=== PATIENT | male | born 1960 | race Caucasian/White ===

== ENCOUNTER 2017-09-29 00:26 | Inpatient (IN) | payer OTHER ==
[2017-09-29] MEDS ORDERED: Ketorolac Tromethamine 30 MG/ML VIAL ONE (00:44)
[2017-09-29 02:09] LABS: #Eosinphils 0.1 thou/uL (0.0-0.7); #Lymphocytes 1.4 thou/uL (1.20-3.40); #Monocytes 0.7 thou/uL (0.11-0.59); #Neutrophils 6.5 thou/uL (1.40-6.50); %Basophils 0.3 % (0.0-1.0); %Lymphocytes 15.9 % (21.0-51.0); %Monocytes 8.3 % (0.0-10.0); %Neutrophils 74.5 % (42.0-75.0); Hemoglobin 14.5 g/dL (14.0-18.0); Mean Corpuscular HGB CONC 35.4 g/dL (32.0-36.0); Mean Corpuscular Hemoglobin 33.9 pg (27.0-31.0); Mean Corpuscular Volume 95.7 fl (80.0-94.0); Mean Platelet Volume 7.5 fL (7.4-10.4); Platelet Count 189 thou/uL (130-400); RBC Distribution Width 12.4 % (11.5-14.5); Red Blood Cell (RBC) Count 4.29 mill/uL (4.70-6.10); White Blood Cell (WBC) Count 8.7 thou/uL (4.8-10.8)
[2017-09-29 02:16] LABS: INR-International Normal Ratio 1.1; PTT 28.9 SEC (22.9-36.1); Prothrombin Time 14.3 SEC (12.0-14.7)
[2017-09-29] MEDS ORDERED: Dextrose 50% Abboject 50 ML SYRINGE SLOW IVP PRN (02:27)
[2017-09-29] MEDS ORDERED: Dextrose 5% in Water 1,000 ML IV PRN (02:27)
[2017-09-29 02:32] LABS: ALT (SGPT) 23 U/L (8-55); AST (SGOT) 39 U/L (5-34); Albumin 3.9 g/dL (3.5-5.0); Alkaline Phosphatase 59 U/L (40-150); Anion Gap 10 mmol/L (10-20); BUN (Urea Nitrogen) 10 mg/dL (8.4-25.7); Bilirubin, Total 1.1 mg/dL (0.2-1.2); Calc. Creatinine Clearance 0 mL/min (70-130); Calcium 9.4 mg/dL (7.8-10.44); Carbon Dioxide 28 mmol/L (22-29); Chloride 102 mmol/L (98-107); Estimated GFR-MDRD Greater than 90; Globulin 3.2 g/dL (2.4-3.5); Glucose 122 mg/dL (70-105); Potassium 3.6 mmol/L (3.5-5.1); Protein, Total 7.1 g/dL (6.0-8.3); Sodium 136 mmol/L (136-145)
[2017-09-29] MEDS ORDERED: Ondansetron HCl/PF 4 MG/2 ML Vial IVP PRN (02:33)
[2017-09-29] MEDS ORDERED: Ondansetron ODT 4 MG TAB PO PRN (02:33)
[2017-09-29] MEDS ORDERED: Rib Fracture Protocol PO SCH (02:45)
[2017-09-29] MEDS ORDERED: Bacitracin Zinc 1 Packet ONE (02:53)
[2017-09-29] MEDS ORDERED: Adacel (T-DAP) 0.5 ML VIAL ONE (03:28)
--- NOTE | 2017-09-29 03:39 | HP ---
DATE OF SERVICE: 09/29/2017 ATTENDING PHYSICIAN: Dr. Ramires. TRAUMA ACTIVATION: Not applicable. HISTORY OF PRESENT ILLNESS: Salty Reed is a 56-year-old gentleman who presented to [facility] v ia EMS status post fall at work site. 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 Patie nt denies any head trauma or loss of consciousness. He was immediately unable to ambulate. He was e valuated in the emergency room and found to have pubic rami fracture, sacral fracture, and iliac frac ture, and an L5 transverse process fracture. Orthopedic Surgery was notified and Trauma Service was asked to admit. Upon my evaluation, the patient had chief complaint of left hip pain. He states radha t this pain was improved with pain medication and is negligible rest, but significantly worsened with movement. PAST MEDICAL HISTORY: None. ALLERGIES: None. HOME MEDICATIONS: None. CHRONIC MEDICAL ILLNESSES: Patient denies. SURGICAL HISTORY: Denies. 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 He drinks 4 to 6 beers daily. He is a pack per day smoker x40 years. REVIEW OF SYSTEMS: Negative except as indicated in the HPI. FAMILY HISTORY: Noncontributory in this traumatic patient. PHYSICAL EXAMINATION: VITAL SIGNS: Blood pressure 145/97, pulse 96, respiration rate 18, O2 sat 99% on room air, temperatu re 97.6. GENERAL: Well-developed male in no acute distress, resting in bed. HEAD: Normocephalic, atraumatic. EYES: Pupils were PERRL. Extraocular movements are intact. NECK: Supple. Trachea is midline. CHEST: Atraumatic, nontender to palpation. Normal work of breathing. LUNGS: Clear to auscultation bilaterally. CARDIOVASCULAR: Regular rate and rhythm, no obvious murmurs, rubs, or gallops. GI/ABDOMEN: Atraumatic, soft, nontender, nondistended. Bowel sounds are positive. BACK: Reported as being within normal limits. MUSCULOSKELETAL: Left upper extremity with abrasion to the left elbow and the left forearm approxima tely 2 x 2 cm. EXTREMITY: Right upper extremity within normal limits. Right lower extremity within normal limits. Left lower extremity with limited range of motion secondary to pain. He is neurovascularly intact, distal to the side of his injury. Pulses are 2+ bilaterally. NEUROLOGIC: GCS of 15. No focal deficit as noted. LABORATORY DATA: WBC 8.7, hemoglobin 14.5, hematocrit 41.1, platelet count 189. INR 1.1. Sodium 13 6, potassium 3.6, chloride 102, carbon dioxide 28, BUN 10, creatinine 0.85, glucose 122. Total bilir ubin 1.1, AST 39, ALT 23. RADIOGRAPHIC FINDINGS: Official read for CT of the pelvis is pending. Per ER physician, the followi ng findings were indicated by the reading physician, L5 left transverse process fracture, fracture of the left sacrum, small left posterior iliac fracture, left superior inferior pubic ramus fracture, f at standing in the space of Retzius and there was evidence of dilation of the aorta without aneurysm. X-ray of the hip demonstrated possible pubic rami fracture, left femur films were negative for acut e fracture or dislocation. Official read is pending. Chest x-ray was without acute cardiopulmonary process. Official read is pending. ASSESSMENT: 1. Status post mechanical fall. 2. Left L5 transverse process fracture. 3. Left sacral fracture. 4. Left posterior iliac fracture. 5. Left superior and inferior pubic rami fracture. 6. Dilated abdominal aorta without mention of aneurysm. 7. Acute traumatic pain. 8. Daily alcohol use. 9. Extensive smoking history. PLAN: Admit to Trauma Services. I have discussed the case with Orthopedic Surgery and they recommen d 50% partial weightbearing of the left lower extremity. Pain management. PT and OT. Inpatient janki abilitation consult. Deep venous thrombosis and gastritis prophylaxis. The patient will need outpat ient follow up for his dilated aorta. Withdrawal prophylaxis with Serax. Plans for admission were d iscussed with the patient. All questions were answered at the time of this dictation. Trauma attend ing has been notified of admission.
[2017-09-29 03:54] LABS: Anion Gap 11 mmol/L (10-20); BUN (Urea Nitrogen) 11 mg/dL (8.4-25.7); Calc. Creatinine Clearance 0 mL/min (70-130); Calcium 9.2 mg/dL (7.8-10.44); Carbon Dioxide 26 mmol/L (22-29); Chloride 103 mmol/L (98-107); Estimated GFR-MDRD 81; Glucose 175 mg/dL (70-105); Potassium 3.5 mmol/L (3.5-5.1); Sodium 136 mmol/L (136-145)
[2017-09-29] MEDS: Ibuprofen 800 MG TAB PO SCH ×3 (05:47→21:01)
[2017-09-29] MEDS: Oxazepam 10 MG CAP PO SCH ×3 (05:48→20:57)
[2017-09-29] MEDS: Acetaminophen 500 MG TAB PO SCH ×3 (05:48→18:08)
[2017-09-29] MEDS: traMADol HCl 50 MG TAB PO SCH ×3 (05:48→18:07)
[2017-09-29 06:04] VITALS: BMI 27.2
--- NOTE | 2017-09-29 07:28 | CT ---
CT OF THE PELVIS: Date: 09/19/17 COMPARISON: None. HISTORY: Left-sided pain, fall. TECHNIQUE: Serial axial CT imaging at 3.75 mm intervals through the pelvis without contrast. Coronal and sagitta l reformatted imaging obtained. FINDINGS: A partially visualized infrarenal abdominal aortic aneurysm is noted, measuring 4.2 x 3.7 cm. There i s atherosclerotic calcification of this abdominal aortic aneurysm and of the pelvic arterial structur es. There is diverticulosis of the descending colon and sigmoid colon. Small bilateral fat-containing inguinal hernias are present, right larger than left. There is a nondisplaced fracture involving the distal aspect of the left L5 transverse process. There is a subtle, nondisplaced, obliquely oriented fracture involving the superior and posterior aspect o f the left iliac bone medially, best seen on axial images 13-18. There is no widening of the sacroili ac joints. There is a minimally displaced, comminuted, primarily vertically oriented fracture involvi ng the lateral aspect of the left sacral ala, best seen on axial images 23-26. There is no widening of the pubic symphysis. There is a comminuted, mildly displaced fracture of the inferior pubic ramus on the left. There is an obliquely oriented fracture involving the superior pubic ramus/pubic bone on the left extending into the left pubic symphysis. There is stranding of the fat within the space of Retzius, evidence of post-traumatic hemorrhage. There is no evidence for a fracture of the inferior or superior pubic ramus on the right. The imaged proximal femur appears intact bilaterally. Neither hip appears dislocated. There is an obliquely oriented, nondisplaced fracture involving the superior and lateral aspect of th e sacrum on the left, on axial image 12 and sagittal image 109. There is lower lumbar spine degenerat rubén change with disc space narrowing, facet hypertrophy, and vacuum disc formation. IMPRESSION: 1. Multiple pelvic fractures on the left including the superior posteromedial aspect of the left ashli ac bone, the left L5 transverse process, the left sacrum, the left superior pubic ramus, and the left inferior pubic ramus. There is resultant stranding of the fat within the space of Retzius. 2. Infrarenal abdominal aortic aneurysm, incompletely imaged on this exam, measuring up to 4.2 cm. 3. Colonic diverticulosis. POS: HAJA
--- NOTE | 2017-09-29 07:53 | RAD ---
LEFT HIP 2 VIEWS: Date: 09/29/17 HISTORY: Fall. Left hip injury. FINDINGS: Mildly displaced fractures involve the left superior and inferior pubic rami, better detailed on CT e xam. There are mild degenerative changes of the left hip. Femoral neck is intact. IMPRESSION: Left pubic rami fractures, better detailed on CT exam. POS: TPC
--- NOTE | 2017-09-29 07:55 | RAD ---
CHEST 1 VIEW: Date: 09/29/17 HISTORY: Fall. Chest injury. FINDINGS: Cardiac silhouette is magnified by projection. Pulmonary vasculature is accentuated by shallow inspir ation. Mediastinum is midline with aortic calcification. Linear atelectasis projects over the right l monica base with slight elevation of the right hemidiaphragm. No evidence of pneumothorax. IMPRESSION: 1. Mild right basilar atelectasis. 2. Atherosclerosis. POS: TPC
--- NOTE | 2017-09-29 08:13 | RAD ---
LEFT FEMUR TWO VIEWS: History: 56-year-old male with history of fall and left femur pain. FINDINGS: There are fractures of the left superior and inferior superpubic rami. No evidence for an acute fract ure of the femur. IMPRESSION: Left sided pelvic fractures including left superior and inferior superpubic rami fractures. POS: OFF
[2017-09-29] MEDS: Polyethylene Glycol 3350 17 GM Packet PO SCH (08:40)
[2017-09-29] MEDS: Senokot S 8.6-50 MG TAB PO SCH ×2 (08:40→20:57)
[2017-09-29] MEDS: Multivit, Therapeutic 1 TAB PO SCH (08:40)
[2017-09-29] MEDS: Folic Acid 1 MG TAB PO SCH (08:40)
[2017-09-29] MEDS: Gabapentin 300 MG CAP PO SCH ×3 (08:40→20:57)
[2017-09-29] MEDS: Famotidine 20 MG TAB PO SCH ×2 (08:40→20:57)
--- NOTE | 2017-09-29 10:46 | PRG-2 ---
DATE OF SERVICE: 09/29/2017 ATTENDING PHYSICIAN: Dr. Rayray Tucker. SUBJECTIVE: This is a 56-year-old male status post fall at work site of approximately 4 feet. Resul ting injuries included a left L5 transverse process fracture, left sacral fracture, left posterior il iac fracture, left superior and inferior pubic ramus fracture. Orthopedic consult is still pending. Currently, the patient states the pain is well controlled, though he is not able to move his left lo wer extremity without significant pain. There were no acute events overnight. OBJECTIVE: VITAL SIGNS: Temperature 97.7, pulse 83, respiratory rate is 18, O2 sat 97% on room air, blood press ure 124/82. GENERAL: The patient is resting comfortably in no acute distress. He is awake, oriented, following commands. HEENT: Atraumatic, normocephalic. RESPIRATORY: Rise and fall of the chest is symmetric bilaterally. Clear to auscultation. CARDIOVASCULAR: Regular rate and rhythm. ABDOMEN: Bowel sounds x4. Abdomen is nontender. MUSCULOSKELETAL: Small abrasion left upper extremity approximately 2 cm across. Otherwise all extre mities are neurovascularly intact. There is significant pain with range of motion of left lower extr emity. NEUROLOGIC: GCS of 15. No focal deficit. ASSESSMENT: 1. Status post mechanical fall. 2. Left L5 transverse process fracture. 3. Left ankle fracture. 4. Left posterior iliac fracture. 5. Left superior and inferior pubic rami fractures. 6. Dilated abdominal aorta was found as an incidental finding on a CT in the emergency room. 7. Acute traumatic pain. 8. Daily alcohol use of approximately 4-6 beers per day. PLAN: 1. Multiple orthopedic fractures, still pending Orthopedic evaluation for possible surgical repair. 2. Pain management. We will continue to schedule Tylenol and Motrin. This is currently controlling his pain well. 3. Have PT evaluate and treat after we have confirmation from Orthopedics that these are all nonsurg ical fractures. 4. Discharge planning; inpatient rehab consult is placed. Their recommendations are pending. 5. Dilated aorta. This will need an outpatient followup. 6. Alcoholism, withdrawal prophylaxis with Serax. The patient does not currently appear to have any withdrawal symptoms. This patient was seen and assessed by Dr. Rayray Tucker who agrees with above assessment and plan.
--- NOTE | 2017-09-29 14:40 | CON ---
DATE OF CONSULTATION: 09/29/2017 REQUESTING PHYSICIAN: Ketan Ramires M.D. HISTORY OF PRESENT ILLNESS: Mr. Lolly Reed is a pleasant 56-year-old gentleman who was examined in his h ospital bed at [place]. He reports that he fell at work. 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 Chaitanya roblero was standing on the back of a trailer and tripped and fell sustaining a lateral compression injury to his left hip. He denies any head trauma or loss of consciousness. He was unable to ambulate afte r the fall due to severe left groin pain and left sacral discomfort. Workup included plain x-ray and CT scan with a CT scan showing a left superior and inferior pubic rami fracture as well as a small a nterior lip sacral fracture consistent with a lateral compression injury. He was also found to have a L5 transverse process fracture. With these findings, orthopedic consultation requested. PAST MEDICAL HISTORY: Healthy. PAST SURGICAL HISTORY: Negative. MEDICATIONS: None. ALLERGIES: None known. 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 He drinks 4-6 beers daily an d has been a pack a day cigarette smoker for approximately 40 years. REVIEW OF SYSTEMS: Denies recent fevers, chills or sweats. Denies chest pain or shortness of breath . Denies numbness or tingling in the lower extremity. FAMILY HISTORY: Noncontributory. PHYSICAL EXAMINATION: VITAL SIGNS: Temperature of 97.6 degrees Fahrenheit, heart rate of 82, respiratory rate of 16 with O 2 saturations of 96%. HEENT: Atraumatic, normocephalic. HEART: Shows a regular rate and rhythm without murmur. LUNGS: Remarkable for good breath sounds. Breathing is unlabored. Chest wall is nontender. ABDOMEN: Benign. PELVIC: Pelvis is stable to compression, but with compression, he does feel some pain on the left SI joint region as well as some groin pain. Palpation along the pubic symphysis shows rami pain to pal pation on the left side. He is able to flex his hip to about 80 degrees and is able to extend active ly, but again with pain felt in the left groin region. EXTREMITIES: Remarkable for bilateral upper extremities atraumatic and bilateral lower extremities a traumatic with normal sensation distally. RADIOLOGIC: X-rays: AP pelvis shows the left superior and inferior rami fracture, the sacral fractu re is difficult to visualize on the plain film. CT scan confirms this lateral compression pattern wi th small anterior lip sacral fracture. ASSESSMENT: A 56-year-old gentleman with lateral compression injury to the pelvis with superior and inferior left-sided fracture and a small compressive injury to the anterior portion of the left sacru m but without pelvic instability. PLAN: At this time, the patient will be mobilized with physical therapy. We will start him at 50% p artial weightbearing but allow him to advance weightbearing as tolerated. I do not believe that a fo llow up x-ray is needed while in the hospital given the stability of the pelvis. I would like to see the patient back in my office in 1 month's time for reevaluation, and at that time, we will obtain a follow up x-ray. The patient appears comfortable with this discussion and plan.
[2017-09-29] MEDS: Nicotine 14 MG PATCH TOP SCH (20:57)
[2017-09-30] MEDS: traMADol HCl 50 MG TAB PO SCH ×5 (00:47→23:12)
[2017-09-30] MEDS: Acetaminophen 500 MG TAB PO SCH ×5 (00:47→23:12)
[2017-09-30] MEDS: Cyclobenzaprine 10 MG TAB PO PRN (00:47)
--- NOTE | 2017-09-30 02:51 | PRG ---
DATE OF SERVICE: 09/29/2017 SUBJECTIVE: A 56-year-old status post fall resulting in injuries of left transverse process fr acture, left ankle fracture, left iliac fracture, superior inferior pubic rami. The patient's pain is well controlled, no new events at this time. OBJECTIVE: Vital signs have been reviewed and stable. Physical exam is unchanged from daily progres s note. ASSESSMENT AND PLAN: Continue care as noted in the daily progress note. Continue to monitor. DISCHARGE DISPOSITION: Pending.
[2017-09-30] MEDS: Oxazepam 10 MG CAP PO SCH ×3 (03:56→20:45)
[2017-09-30 05:33] LABS: #Eosinphils 0.2 thou/uL (0.0-0.7)
[2017-09-30 05:48] LABS: Anion Gap 10 mmol/L (10-20); BUN (Urea Nitrogen) 9 mg/dL (8.4-25.7); Calc. Creatinine Clearance 131 mL/min (70-130); Calcium 8.7 mg/dL (7.8-10.44); Carbon Dioxide 26 mmol/L (22-29); Chloride 104 mmol/L (98-107); Estimated GFR-MDRD Greater than 90; Glucose 100 mg/dL (70-105); Magnesium 2.2 mg/dL (1.6-2.6); Phosphorus 5.2 mg/dL (2.3-4.7); Potassium 3.3 mmol/L (3.5-5.1); Sodium 137 mmol/L (136-145)
[2017-09-30 05:50] LABS: #Lymphocytes 1.1 thou/uL (1.20-3.40); #Monocytes 0.8 thou/uL (0.11-0.59); #Neutrophils 4.5 thou/uL (1.40-6.50); %Basophils 0.4 % (0.0-1.0); %Eosinophils 3.1 % (0.0-10.0); %Lymphocytes 16.8 % (21.0-51.0); %Monocytes 11.7 % (0.0-10.0); Hemoglobin 12.5 g/dL (14.0-18.0); Mean Corpuscular HGB CONC 33.2 g/dL (32.0-36.0); Mean Corpuscular Hemoglobin 32.6 pg (27.0-31.0); Mean Corpuscular Volume 98.3 fl (80.0-94.0); Platelet Count 163 thou/uL (130-400); RBC Distribution Width 12.4 % (11.5-14.5); Red Blood Cell (RBC) Count 3.85 mill/uL (4.70-6.10); White Blood Cell (WBC) Count 6.7 thou/uL (4.8-10.8)
[2017-09-30] MEDS ORDERED: Potassium Chloride 20 MEQ TAB PO SCH (06:45)
[2017-09-30] MEDS: Ibuprofen 800 MG TAB PO SCH ×3 (06:52→20:44)
[2017-09-30] MEDS: Famotidine 20 MG TAB PO SCH ×2 (08:38→20:45)
[2017-09-30] MEDS: Multivit, Therapeutic 1 TAB PO SCH (08:39)
[2017-09-30] MEDS: Senokot S 8.6-50 MG TAB PO SCH ×2 (08:39→20:45)
[2017-09-30] MEDS: Polyethylene Glycol 3350 17 GM Packet PO SCH (08:39)
[2017-09-30] MEDS: Gabapentin 300 MG CAP PO SCH ×3 (08:39→20:45)
[2017-09-30] MEDS: Folic Acid 1 MG TAB PO SCH (08:39)
[2017-09-30] MEDS: Enoxaparin Sodium 40 MG/0.4 ML SYRINGE SC SCH (08:39)
--- NOTE | 2017-09-30 09:59 | PRG-2 ---
DATE OF SERVICE: 09/30/2017 ATTENDING PHYSICIAN: Dr. Rayray Tucker SUBJECTIVE: This is a 56-year-old male status post fall at work site approximately 4-5 feet. Result ing injuries are a left L5 transverse process fracture, left sacral fracture, left posterior iliac fr acture, left superior and inferior pubic rami fracture. Orthopedics saw the patient yesterday and de termined it to be nonsurgical. They recommended a 1 month followup after physical therapy and gave h im a 50% weightbearing restriction. Currently, the patient states the pain is well controlled. He i s able to move all extremities without significant pain. Left lower extremity motion is improved fro m yesterday. There were no acute events overnight. OBJECTIVE: VITAL SIGNS: Temperature 97.2, pulse 81, respiratory rate 18, O2 sat 94% on room air, blood pressure 124/80. GENERAL: The patient is resting comfortably in no acute distress. He is awake and oriented, follows commands and is appropriately interactive. HEENT: Atraumatic, normocephalic. CHEST: Fall of chest symmetric bilaterally. Clear to auscultation. CARDIOVASCULAR: Regular rate and rhythm. ABDOMEN: Bowel sounds x4. Abdomen is nontender. MUSCULOSKELETAL: There are multiple abrasions on the left upper, left lower extremity. Pain is impr sudha with motion of the left lower extremity, however, is still somewhat tender. NEUROLOGIC: No focal neurologic deficits. GCS 15. ASSESSMENT: 1. Status post fall. 2. Multiple nonoperative orthopedic fractures. 3. Dilated abdominal aorta. 4. Acute traumatic pain. 5. Alcohol dependence. PLAN: 1. Multiple orthopedic fractures. We will continue with PT today. We will set up orthopedic follow up in 1 months' time. Physical therapy has yet to evaluate the patient, likely discharge tomorrow pending evaluation and discussion of placement. This patient will likely be appropriate for [facility]. 2. Follow up outpatient for incidental finding of the abdominal aorta and dilation. 3. Acute traumatic pain. Pain is well controlled. Continue current medical management. 4. Alcohol dependence. The patient is currently getting Serax 10 mg t.i.d. No signs or symptoms of delirium tremens. Patient is not agitated, not hallucinating, denies all other symptoms. 5. Discharge planning pending PT evaluation today. Work for placement tomorrow. This patient will likely be appropriate for rehab as above. There is currently a rehab screening pending. We will con tinue with case management for placement tomorrow. The patient was seen and evaluated by Dr. Rayray Tucker who agrees with above assessment and plan.
[2017-09-30] MEDS: Nicotine 14 MG PATCH TOP SCH (20:44)
--- NOTE | 2017-09-30 21:26 | PRG ---
DATE OF SERVICE: 09/30/2017 SUBJECTIVE: This is a 56-year-old male status post fall with multiple fractures in pelvis and lower back. No new complaints at this time. No acute events. OBJECTIVE: VITAL SIGNS: Have been reviewed, otherwise had been stable. Physical exam is unchanged and detailed in daily progress note. ASSESSMENT AND PLAN: Continue care as noted in the daily progress note. Continue to monitor. DISCHARGE DISPOSITION: Pending.
[2017-10-01] MEDS: traMADol HCl 50 MG TAB PO SCH ×4 (04:19→23:56)
[2017-10-01] MEDS: Ibuprofen 800 MG TAB PO SCH ×3 (04:20→21:47)
[2017-10-01] MEDS: Oxazepam 10 MG CAP PO SCH ×3 (04:20→20:17)
[2017-10-01] MEDS: Acetaminophen 500 MG TAB PO SCH ×4 (04:20→23:56)
[2017-10-01] MEDS: Folic Acid 1 MG TAB PO SCH (09:39)
[2017-10-01] MEDS: Senokot S 8.6-50 MG TAB PO SCH ×2 (09:39→20:17)
[2017-10-01] MEDS: Gabapentin 300 MG CAP PO SCH ×3 (09:40→20:17)
[2017-10-01] MEDS: Multivit, Therapeutic 1 TAB PO SCH (09:40)
[2017-10-01] MEDS: Enoxaparin Sodium 40 MG/0.4 ML SYRINGE SC SCH (09:40)
[2017-10-01] MEDS: Cyclobenzaprine 10 MG TAB PO PRN (09:40)
[2017-10-01] MEDS: Polyethylene Glycol 3350 17 GM Packet PO SCH (09:40)
[2017-10-01] MEDS: Famotidine 20 MG TAB PO SCH ×2 (09:40→20:17)
--- NOTE | 2017-10-01 13:36 | PRG-2 ---
DATE OF SERVICE: 10/01/2017 ATTENDING PHYSICIAN: Rayray Tucker DO SUBJECTIVE: This is a 56-year-old male status post fall approximately 4-5 feet, resulting in injurie s including a left L5 transverse process fracture, left sacral fracture, left posterior iliac fractur e, left superior and inferior pubic rami fractures. It was determined by Orthopedics that all fractu res are nonsurgical. They recommended a followup one month after discharge. He currently has a 50% weightbearing restriction. The patient says pain is well controlled and the only time he experiences pain is when he is having to either get up out of bed or to get back into bed. He is doing well wit h physical therapy. There were no acute events overnight. OBJECTIVE: VITAL SIGNS: Temperature 98.2, pulse 82, respiratory rate 20, O2 saturation 97% on room air, blood p ressure 129/77. GENERAL: At the time of examination, the patient was just finishing physical therapy and is getting back into bed with assistance. Was in bed, he is resting comfortably in no acute distress. HEENT: Atraumatic, normocephalic. LUNGS: Clear to auscultation bilaterally. CARDIOVASCULAR: Regular rate and rhythm. ABDOMEN: Bowel sounds x4. Abdomen is nontender. MUSCULOSKELETAL: Abrasions in the left upper and left lower extremity that are dressed. Dressings a re clean and dry. The only time he experiences pain is when he was getting up again in bed. His zee n is manageable with motion of upper and lower extremities. NEUROLOGICAL: No focal neurologic deficits. ASSESSMENT: 1. Status post fall. 2. Multiple nonoperative orthopedic fractures. 3. Dilated abdominal aorta. 4. Acute traumatic pain. 5. Alcohol dependence. PLAN: 1. Continue PT while here. The patient is medically appropriate for discharge; however, waiting on placement, approval from workers' compensation. Per PT, the patient is appropriate for inpatient re habilitation. While here, we will continue PT. 2. Acute traumatic pain. This is mostly controlled on current management. No changes in management currently. 3. Alcohol dependence, currently no signs or symptoms of alcohol withdrawals. Continue Serax 10 mg t.i.d. 4. Abdominal aorta, this is incidental finding. Follow up with Cardiology outpatient. This patient was seen and assessed by Dr. Rayray Tucker, who agrees with the above assessment and plan.
[2017-10-01] MEDS: Nicotine 14 MG PATCH TOP SCH (20:16)
[2017-10-02] MEDS: Oxazepam 10 MG CAP PO SCH ×3 (04:44→22:27)
[2017-10-02] MEDS: traMADol HCl 50 MG TAB PO SCH ×4 (05:53→22:26)
[2017-10-02] MEDS: Acetaminophen 500 MG TAB PO SCH ×4 (05:53→22:27)
[2017-10-02] MEDS: Ibuprofen 800 MG TAB PO SCH ×3 (05:53→22:27)
[2017-10-02] MEDS ORDERED: Bisacodyl 10 MG SUPP PR SCH (09:00)
[2017-10-02] MEDS: Gabapentin 300 MG CAP PO SCH ×3 (09:04→22:27)
[2017-10-02] MEDS: Multivit, Therapeutic 1 TAB PO SCH (09:04)
[2017-10-02] MEDS: Senokot S 8.6-50 MG TAB PO SCH (09:04)
[2017-10-02] MEDS: Folic Acid 1 MG TAB PO SCH (09:04)
[2017-10-02] MEDS: Famotidine 20 MG TAB PO SCH ×2 (09:04→22:27)
[2017-10-02] MEDS: Enoxaparin Sodium 40 MG/0.4 ML SYRINGE SC SCH (09:05)
[2017-10-02] MEDS: Polyethylene Glycol 3350 17 GM Packet PO SCH (09:06)
--- NOTE | 2017-10-02 16:35 | PRG ---
DATE OF SERVICE: 10/02/2017 ATTENDING PHYSICIAN: Rayray Tucker DO SUBJECTIVE: This patient is a 56-year-old male, who fell approximately 4 to 5 feet on 09/29/2017, re sulting in a left L5 transverse process fracture, left sacral fracture, left posterior iliac fracture , left superior and inferior pubic rami fractures. All fractures were determined to be nonoperative per orthopedic consultation. He is currently on a 50% weightbearing restriction. Pain is well contr olled per report this morning and he has been working with PT and OT successfully. He verbalizes no complaints this morning. OBJECTIVE: VITAL SIGNS: Blood pressure 123/83, pulse 80, temperature 98.3, respirations 20, O2 sat 96% on room air. GENERAL: The patient is an elderly adult male lying in bed, in no acute distress. HEENT: Normocephalic, atraumatic. LUNGS: Clear to auscultation bilaterally with normal effort. CARDIOVASCULAR: He has regular rate and rhythm. Normal S1 and S2. ABDOMEN: Soft, nontender, and nondistended. Bowel sounds are normal. MUSCULOSKELETAL: His abrasions in the upper left and lower left extremities are dressed. The dressi ngs are clean and dry. He is neurovascularly intact x4. NEUROLOGIC: He is A and O x3 this morning. His GCS is 15. He has no focal deficits. LABORATORY FINDINGS: There are no labs to review today. RADIOGRAPHIC FINDINGS: There are no radiographs to review today. ASSESSMENT: 1. Status post mechanical fall. 2. Left L5 transverse process fracture. 3. Left sacral fracture. 4. Left posterior iliac fracture. 5. Left superior and inferior pubic rami fracture. 6. Dilated abdominal aorta without mention of aneurysm. 7. Acute traumatic pain. 8. Alcohol use disorder. 9. Tobacco use disorder. PLAN: 1. Continue PT and OT. The patient is medically stable for discharge at this time. Since this was an accident that happened while at work, workers compensation evaluation is pending. Anticipate disc harge to rehab as soon as this evaluation gets resolves. 2. Continue pain control, PT and OT, pulmonary toileting and other supportive care measures as neede d. 3. Continue Serax for alcohol withdrawal prophylaxis. 4. The patient has been instructed to follow up with Cardiology as an outpatient regarding his abdom inal aortic dilation. This patient was seen and examined along with Dr. Rayray Tucker on rounds who agrees with the assessm ent and plan.
[2017-10-02] MEDS: Nicotine 14 MG PATCH TOP SCH (22:28)
[2017-10-03] MEDS: Ibuprofen 800 MG TAB PO SCH ×3 (06:38→21:54)
[2017-10-03] MEDS: Acetaminophen 500 MG TAB PO SCH ×4 (06:38→22:20)
[2017-10-03] MEDS: traMADol HCl 50 MG TAB PO SCH ×4 (06:38→22:20)
[2017-10-03] MEDS: Gabapentin 300 MG CAP PO SCH ×3 (08:07→21:54)
[2017-10-03] MEDS: Oxazepam 10 MG CAP PO SCH ×2 (08:07→22:04)
[2017-10-03] MEDS: Multivit, Therapeutic 1 TAB PO SCH (08:07)
[2017-10-03] MEDS: Famotidine 20 MG TAB PO SCH ×2 (08:07→21:53)
[2017-10-03] MEDS: Enoxaparin Sodium 40 MG/0.4 ML SYRINGE SC SCH (08:07)
[2017-10-03] MEDS: Folic Acid 1 MG TAB PO SCH (08:08)
--- NOTE | 2017-10-03 13:01 | PRG ---
DATE OF SERVICE: 10/03/2017 ATTENDING PHYSICIAN: Rayray Tucker DO SUBJECTIVE: This is a 56-year-old male status post fall 4 to 5 feet resulting in left L5 transverse process fracture, left sacral fracture, left posterior iliac fracture, left superior and inferior pubic rami fractures. He was evaluated by Orthopedic Surgery, who recommended nonoperative treatment. He is currently 50% weightbearing restriction. The patient reports pain has been well controlled and he is able to mobilize with physical and occupational therapy. He has had no acute event overnight. OBJECTIVE: VITAL SIGNS: Temperature 98.5, pulse 89, respirations 18, O2 sat 95% on room air, blood pressure 123/79. GENERAL: Well-developed, well-nourished male, in no acute distress. HEENT: Atraumatic, normocephalic. PULMONARY: Bilateral breath sounds clear to auscultation. No respiratory distress. CARDIOVASCULAR: Regular rate and rhythm. Heart sounds normal. ABDOMEN: Soft, nontender, nondistended. Bowel sounds are present. MUSCULOSKELETAL: All abrasions on extremities, no evidence of infection. Dressings in place. Cap refill brisk. Neurovascular intact in all extremities. NEUROLOGIC: GCS of 15. Awake, alert, and oriented x3. ASSESSMENT: 1. Status post fall from height. 2. Multiple nonoperative orthopedic fractures. 3. Acute traumatic pain, improving. 4. Alcohol dependence, the patient has been on Serax since admission. PLAN: 1. Continue mobilizing with physical and occupational therapy. 2. Case management for discharge planning. The patient is medically stable to be transferred to a rehab facility when workers' compensation approves discharged to that facility. 3. Serax taper started yesterday. 4. Continue analgesia as ordered. Pain is well controlled. The patient was seen and examined with Dr. Tukcer, who agrees with the assessment and plan. [facility] CENTERJeffrey
[2017-10-03] MEDS: Nicotine 14 MG PATCH TOP SCH (21:56)
[2017-10-04] MEDS: traMADol HCl 50 MG TAB PO SCH ×4 (06:35→21:44)
[2017-10-04] MEDS: Ibuprofen 800 MG TAB PO SCH ×3 (06:35→20:59)
[2017-10-04] MEDS: Acetaminophen 500 MG TAB PO SCH ×4 (06:37→21:44)
[2017-10-04] MEDS: Nicotine 14 MG PATCH TOP SCH ×2 (06:39→21:41)
[2017-10-04] MEDS: Multivit, Therapeutic 1 TAB PO SCH (08:03)
[2017-10-04] MEDS: Folic Acid 1 MG TAB PO SCH (08:03)
[2017-10-04] MEDS: Gabapentin 300 MG CAP PO SCH ×3 (08:03→21:43)
[2017-10-04] MEDS: Famotidine 20 MG TAB PO SCH ×2 (08:04→21:43)
[2017-10-04] MEDS: Enoxaparin Sodium 40 MG/0.4 ML SYRINGE SC SCH (08:04)
[2017-10-04] MEDS: Oxazepam 10 MG CAP PO SCH ×2 (08:11→20:59)
--- NOTE | 2017-10-04 13:42 | PRG ---
DATE OF SERVICE: 10/04/2017 ATTENDING PHYSICIAN: Rayray Tucker D.O. SUBJECTIVE: A 56-year-old male status post fall 4-5 feet resulting in left L5 transverse process fracture, left sacral fracture, left posterior iliac fracture , left superior and inferior pubic rami fractures. He was evaluated by Orthopedic Surgery who recommended nonoperative treatment. He is currently 50% weightbearing restriction. The patient reports he has been well controlled and he is able to mobilize with physical and occupational therapy. He has had no acute events overnight. He is currently awaiting placement in rehab when approved by worker's compensation funding. OBJECTIVE: VITAL SIGNS: Temperature 98.4, pulse 82, respirations 20, O2 saturation 94% on room air, blood pressure 148/86. GENERAL: Well-developed, well-nourished male in no acute distress. HEENT: Atraumatic, normocephalic. PULMONARY: Bilateral breath sounds clear to auscultation. No respiratory distress. CARDIOVASCULAR: Regular rate and rhythm. Heart sounds normal. ABDOMEN: Soft, nontender, and nondistended. Bowel sounds are present. MUSCULOSKELETAL: Abrasions on upper extremities. No drainage. No redness. Cap refill brisk. Neurovascularly intact in all extremities. NEUROLOGIC: GCS of 15. A and O x3. ASSESSMENT: 1. Status post fall from height. 2. Multiple nonoperative orthopedic fractures. 3. Acute traumatic pain, improved. 4. Alcohol dependence, the patient has been on Serax since admission. PLAN: 1. Continue mobilizing with physical and occupational therapy. 2. Case management following for discharge planning. The patient is medically stable to be transferred to a rehab facility and worker's compensation approved discharge to that facility. 3. Continue Serax taper and DC. 4. Continue analgesia as ordered. Pain has been well controlled. Current analgesia regimen should be adequate. The patient was seen and examined with Dr. Tucker who agrees with the assessment and plan. [facility]
[2017-10-04] MEDS: Cyclobenzaprine 10 MG TAB PO PRN (16:11)
[2017-10-04] MEDS: Bacitracin Zinc 1 Packet TOP SCH (21:43)
[2017-10-05] MEDS: traMADol HCl 50 MG TAB PO SCH ×3 (06:22→18:23)
[2017-10-05] MEDS: Acetaminophen 500 MG TAB PO SCH ×3 (06:22→18:23)
[2017-10-05] MEDS: Ibuprofen 800 MG TAB PO SCH ×3 (06:23→21:29)
[2017-10-05] MEDS: Famotidine 20 MG TAB PO SCH ×2 (09:08→21:29)
[2017-10-05] MEDS: Gabapentin 300 MG CAP PO SCH ×3 (09:08→21:29)
[2017-10-05] MEDS: Oxazepam 10 MG CAP PO SCH (09:08)
[2017-10-05] MEDS: Folic Acid 1 MG TAB PO SCH (09:08)
[2017-10-05] MEDS: Multivit, Therapeutic 1 TAB PO SCH (09:08)
[2017-10-05] MEDS: Cyclobenzaprine 10 MG TAB PO PRN (09:08)
[2017-10-05] MEDS: Bacitracin Zinc 1 Packet TOP SCH ×2 (09:09→21:29)
[2017-10-05] MEDS: Enoxaparin Sodium 40 MG/0.4 ML SYRINGE SC SCH (09:09)
--- NOTE | 2017-10-05 17:49 | PRG ---
DATE OF SERVICE: 10/05/2017 ATTENDING PHYSICIAN: Dr. Rayray Tucker. SUBJECTIVE: Mr. Lolly Blanco is a 56-year-old male status post fall from approximately 5 feet, resulting in a L5 transverse process fracture, left sacral fracture, left posterior iliac fracture, left superior and inferior pubic rami fractures. He was evaluated by Orthopedic Surgery who recommended nonoperative treatment. He is currently 50% weightbearing restriction on the left lower extremity. The patient reports his pain has been well controlled and he is able to mobilize with physical and occupational therapy with adequate pain control. He has had no acute events overnight. He is currently awaiting placement in rehab when approved by worker's compensation funding. OBJECTIVE: VITAL SIGNS: Temperature 98, pulse 86, respirations 18, O2 sat 95% on room air , blood pressure 130/80. CONSTITUTIONAL: A 56-year-old male sitting on the side of bed in no acute distress. PULMONARY: Bilateral breath sounds clear to auscultation. No respiratory distress. CARDIOVASCULAR: Regular rate and rhythm. Heart sounds normal. ABDOMEN: Soft, nontender, nondistended. Bowel sounds are present. MUSCULOSKELETAL: Abrasions on upper extremities. No drainage, no redness. Cap refill brisk. Neurovascular intact all extremities. NEUROLOGIC: GCS 15. A&O x3. ASSESSMENT: 1. Status post fall from height. 2. Multiple nonoperative orthopedic pelvic fractures. 3. Acute traumatic pain, well controlled. 4. Alcohol dependence, the patient has been on Serax. The patient has not exhibited any signs of alcohol withdrawal. We will wean the Serax off. PLAN: 1. Continue mobilizing with physical and occupational therapy. 2. Case management following for discharge planning. He is medically stable to be transferred to the rehab facility when worker's compensation approves his admission to that facility. 3. Continue analgesia as ordered. The patient was seen and examined with Dr. Tucker who agrees with the assessment and plan. [facility] CENTERJeffrey
[2017-10-05] MEDS ORDERED: Oxazepam 10 MG CAP PO PRN (18:08)
[2017-10-05] MEDS: Nicotine 14 MG PATCH TOP SCH (21:49)
--- NOTE | 2017-10-06 | PRG ---
DATE OF SERVICE: 10/05/2017 SUBJECTIVE: This is a 56-year-old gentleman status post fall with multiple pelvic fractures. He has been awaiting inpatient rehab approval in [employer] funding. Upon my evaluation, the patient v ocalized no complaint. The pain is controlled via p.o. analgesics and he has been working with physi elysia therapy and occupational therapy. OBJECTIVE: VITAL SIGNS: Reviewed and stable. GENERAL: The patient is afebrile, resting in bed, in no acute distress. Breathing is nonlabored. ASSESSMENT AND PLAN: As documented in daily progress notes. We are still waiting for [employer] funding and contract to be signed with [facility]. Continue care as ordered. Continue to latia stauffer.
[2017-10-06] MEDS: Acetaminophen 500 MG TAB PO SCH ×3 (01:20→12:16)
[2017-10-06] MEDS: traMADol HCl 50 MG TAB PO SCH ×3 (01:20→12:16)
[2017-10-06] MEDS: Ibuprofen 800 MG TAB PO SCH ×2 (06:14→14:43)
[2017-10-06] MEDS: Gabapentin 300 MG CAP PO SCH ×2 (08:47→14:43)
[2017-10-06] MEDS: Folic Acid 1 MG TAB PO SCH (08:47)
[2017-10-06] MEDS: Famotidine 20 MG TAB PO SCH (08:48)
[2017-10-06] MEDS: Bacitracin Zinc 1 Packet TOP SCH (08:49)
[2017-10-06] MEDS: Enoxaparin Sodium 40 MG/0.4 ML SYRINGE SC SCH (08:49)
[2017-10-06] MEDS: Multivit, Therapeutic 1 TAB PO SCH (08:49)
[2017-10-06 13:06] VITALS: BP 132/76; TEMP 98.1
--- NOTE | 2017-10-06 17:24 | PRG ---
DATE OF SERVICE: 10/06/2017 SUBJECTIVE: Mr. Villanueva is a 56-year-old man who is status post fall on a job site. The patient sustained multiple trauma including an L5 transverse process fracture, left sacral and le ft posterior iliac fractures. He also suffered left superior and inferior pubic rami fractures. The patient was evaluated by Orthopedic Surgery, who recommended nonoperative management. The patient's care has included physical and occupational therapy. Today, he reports adequate pain c ontrol. He is tolerating general diet, having normal bowel and urinary function. OBJECTIVE: VITAL SIGNS: Today includes blood pressure 132/76, pulse 76, respirations 16, temperature is 98.3 de grees Fahrenheit, oxygen saturation is 96% on room air. HEENT: Reveals normocephalic and atraumatic. HEART: Reveals regular rate and rhythm. No murmurs or gallops auscultated. CHEST: Clear to auscultation bilaterally. Breathing regular and unlabored. ABDOMEN: Soft, nontender and nondistended. EXTREMITIES: Reveals 2+ radial and pedal pulses bilaterally. No ankle edema is present. NEUROLOGIC: Reveals no focal deficits present. IMPRESSION: 1. Post-injury day 7 status post fall. 2. Multiple pelvic fractures. PLAN: Continue physical and occupational therapy. The patient is awaiting inpatient rehabilitation once a bed becomes available. Otherwise, he has remained hemodynamically stable.
--- NOTE | 2017-10-07 00:39 | DIS ---
DATE OF ADMISSION: 09/29/2017 DATE OF DISCHARGE: 10/06/2017 ADMITTING PHYSICIAN: Dr. Ramires. DISCHARGING PHYSICIAN: Dr. Tucker. CONSULTING PHYSICIANS: Dr. Grant Tran, Orthopedics. Dr. Khai Ugalde, Neurosurgery CHIEF COMPLAINT: Multiple fractures status post fall. HOSPITAL COURSE: Mr. Schrader is a 56-year-old male who presented to the [facility] ED via EMS status post fall at work site in which he apparently fell approximately 4 feet. He was evaluated and found to have superior and inferior pubic rami fracture, sacral fracture, iliac fracture and L5 transverse process fracture. Trauma services admitted and orthopedic and Neurosurgery were consulted. All of t hese injuries were determined to be nonoperative, and the patient was kept in house for pain control and for mobilization with PT and OT. The patient discharged to inpatient rehab on 10/06/2017 in good condition. DISCHARGE MEDICATIONS: The patient was discharged to inpatient rehab with all of his inpatient medic ations. The patient was discontinued on 81 mg aspirin. He is currently taking 40 mg of Lovenox tyler y. He will be able to restart his home aspirin upon discharge to rehabilitation. ACTIVITY ORDERS: The patient has orthopedic limitations, 50% weightbearing on his left lower extremi ty. NOURISHMENT INSTRUCTIONS: The patient can follow a regular diet. THERAPY INSTRUCTIONS: The patient will have physical and occupational therapy while in rehabilitatio n. FOLLOWUP: The patient is to follow up with Dr. Grant Tran in 1 month. The patient also instru cted to follow up with his PCP as needed. This patient was seen and examined along with Dr. Rayray Tucker on rounds, who agrees with this disch arge plan.
== END 2017-10-06 17:25 | DRG 536 ==
LOC: ERS 00:26 → SURG A 02:33
PROVIDERS: ADMIT Specialist; ATTEND Specialist
DX: S32.592A Other specified fracture of left pubis, initial encounter for closed fracture (principal); S32.059A Unspecified fracture of fifth lumbar vertebra, initial encounter for closed fracture; S32.10XA Unspecified fracture of sacrum, initial encounter for closed fracture; S32.302A Unspecified fracture of left ilium, initial encounter for closed fracture; G89.11 Acute pain due to trauma; F10.20 Alcohol dependence, uncomplicated; I77.811 Abdominal aortic ectasia; F17.210 Nicotine dependence, cigarettes, uncomplicated; W17.89XA Other fall from one level to another, initial encounter; Y92.89 Other specified places as the place of occurrence of the external cause; Y99.0 Civilian activity done for income or pay
CPT/HCPCS: 36415; 71045; 72192; 80048; 80053; 83735; 84100; 85025; 85610; 85730; 86850; 86900; 86901; 90471; 90715; 94640; 96372; G0390; G8978-GP-CM; G8979-GP-CK; G8987-GO-CL; G8988-GO-CJ; J1650; J1885; J7620